=== PATIENT | female | born 1965 | race Caucasian/White ===

== ENCOUNTER 2020-03-02 22:57 | Emergency (ER) | payer MEDICAID ==
[~2020-03-02] VITALS: Ht 160 cm; Wt 63.6 kg
[~2020-03-02 22:57] MED LIST: ASPI-611 PO; CHOL2000 PO; FAMO-1 PO; GLIP10TA21 PO; METF-436 PO; MONT10TA21 PO; atorvastatin PO; lisinopril PO
[2020-03-03] MEDS ORDERED: propofol 10mg/ml 20ml vial IV ONE (00:05)
--- NOTE | 2020-03-03 00:54 | NUR ---
90mg propofol administered by during procedure. wasted the remaining 110mg with JEANIE Booker in the rx destroyer in med room.
[2020-03-03] MEDS ORDERED: OXYC-145 PO (01:09)
[2020-03-03] MEDS ORDERED: IBUP-1985 PO (01:09)
[2020-03-03] MEDS ORDERED: oxyCODONE/APAP 5-325mg tablet PO ONE (01:10)
[2020-03-03 01:33] VITALS: BP 109/59
== END 2020-03-03 02:11 | disposition home or self-care (01) ==
LOC: ER 22:57
DX: S52.592A Other fractures of lower end of left radius, initial encounter for closed fracture (principal); M79.632 Pain in left forearm; E11.9 Type 2 diabetes mellitus without complications; Z85.3 Personal history of malignant neoplasm of breast; Z88.1 Allergy status to other antibiotic agents; Z79.82 Long term (current) use of aspirin; Z79.899 Other long term (current) drug therapy; W18.39XA Other fall on same level, initial encounter; Y93.89 Activity, other specified; Y92.89 Other specified places as the place of occurrence of the external cause; Y99.8 Other external cause status
CPT/HCPCS: 25605; 73100; 73110; 94760; 94799; 99152; 99285